=== PATIENT | female | born 1990 | race African-American/Black ===

== ENCOUNTER 2018-09-04 22:54 | Emergency (ER) | payer MEDICAID, OTHER ==
[~2018-09-04] VITALS: Ht 162.6 cm; Wt 96.0 kg
[2018-09-05] MEDS ORDERED: KETOROLAC 60MG/2ML VIAL IM ONE (00:30)
[2018-09-05 00:46] LABS: BASOPHILS % 0.2 % (0.0-2.0); EOSINOPHILS % 1.1 % (0.0-5.0); HEMATOCRIT. 36.5 % (36.0-48.0); HEMOGLOBIN. 12.3 g/dL (12.0-16.0); LYMPHOCYTES % 44.2 % (20.0-50.0); MEAN CORPUSCULAR HEMOGLOBIN 28.9 pg (28.0-32.0); MEAN CORPUSCULAR VOLUME 85.5 fL (81.0-99.0); MEAN PLATELET VOLUME 7.4 fl (7.4-10.4); NEUTROPHILS % 47.5 % (40.0-76.0); PLATELET 278 x1000/uL (130-400); RED BLOOD CELL COUNT 4.27 mill/uL (4.2-5.4); RED CELL DISTRIBUTION WIDTH 13.8 % (11.6-14.6)
[2018-09-05 00:53] LABS: CHLORIDE 105 mEq/L (98-107)
[2018-09-05 00:54] LABS: HCG SCREEN NEGATIVE
[2018-09-05 01:35] LABS: CLARITY URINE CLEAR (CLEAR); COLOR URINE YELLOW (YELLOW); KETONES URINE TRACE (NEGATIVE); LEUKOCYTE ESTERASE URINE 1+ (NEGATIVE); NITRITE URINE NEGATIVE (NEGATIVE); OCCULT BLOOD URINE NEGATIVE (NEGATIVE); PROTEIN URINE NEGATIVE (NEGATIVE); SPECIFIC GRAVITY URINE 1.027 (1.005-1.030)
[2018-09-05 02:23] VITALS: BP 126/80
== END 2018-09-05 02:24 | disposition home or self-care (01) ==
LOC: ER 22:54
DX: M62.830 Muscle spasm of back (principal); N39.0 Urinary tract infection, site not specified; F31.9 Bipolar disorder, unspecified; F20.9 Schizophrenia, unspecified
CPT/HCPCS: 36415; 80048; 81003; 84703; 85025; 93005; 96372; 99284; J1885

== ENCOUNTER 2023-02-26 01:18 | Emergency (ER) | payer MEDICAID ==
[~2023-02-26] VITALS: Ht 170.2 cm; Wt 70.0 kg
[2023-02-26 01:24] VITALS: BP 137/74; PULSE 90; RESP 16; TEMP 98.5; O2SAT 98
== END 2023-02-26 09:06 | disposition left against medical advice (07) ==
LOC: ER 01:18
DX: R52 Pain, unspecified (principal); Z53.21 Procedure and treatment not carried out due to patient leaving prior to being seen by health care provider
CPT/HCPCS: 99281